=== PATIENT | female | born 1945 | race Caucasian/White ===

== ENCOUNTER 2017-01-08 11:16 | Observation (INO) | payer OTHER ==
[~2017-01-08] VITALS: Ht 149.9 cm; Wt 63.0 kg
[~2017-01-08 11:16] MED LIST: CARVEDILOL3.125 MG PO; EPIPEN ADU0.3 MG/0.3 IM; HYDROCHLOROTHIA25 MG PO; HYDROXYZINE HCL25 MG PO; LIPITOR40 MG PO; LISINOPRIL20 MG PO; LO-DOSE ASPIRIN81 M2 PO; PRESERVISION T1 EACH PO; RESTORIL15 MG PO
[2017-01-08 12:37] LABS: ANION GAP 12 MEQ/L (2-14); CHLORIDE 92 MEQ/L (99-109); GFR ESTIMATE (CALCULATED) > 59 mL/min/; GLUCOSE 88 mg/dL (70-99); POTASSIUM 4.1 MEQ/L (3.7-5.4); SAMPLE HEMOLYSIS CHECK 0; SAMPLE ICTERIC CHECK 0; SAMPLE LIPEMIA CHECK 0; SODIUM 125 MEQ/L (136-147); UREA NITROGEN (BUN) 12 mg/dL (9-23)
[2017-01-08 15:35] LABS: BASOPHIL COUNT 0.1 K/uL (0-0.1); EOSINOPHIL (%) 3.2 % (0-5); EOSINOPHIL COUNT 0.2 K/uL (0-0.3); HEMATOCRIT 37.7 % (36.0-46.0); IMMATURE GRANULOCYTE (%) 0.4 % (0.0-0.7); INSTRUMENT ABS NEUTROPHIL CT 4.5 K/uL; LYMPHOCYTE COUNT 2.1 K/uL (1.0-2.8); MCH 31.1 PG (29.0-34.0); MCHC 33.7 G/DL (30.0-36.0); MCV 92.2 FL (83-99); MEAN PLAT.VOLUME 9.3 uM^3 (9.5-12.4); MONOCYTE (%) 8.2 % (3-12); MONOCYTE COUNT 0.6 K/uL (0-0.8); NEUTROPHIL (%) 58.9 % (45-76); NEUTROPHIL COUNT 4.5 K/uL (1.8-6.4); PLATELET COUNT 301 K/uL (156-360); RBC DIS.WIDTH-CV 11.4 % (11.8-14.6); RBC DIS.WIDTH-SD 38.5 % (39-53); RED BLOOD COUNT 4.09 M/uL (3.80-5.20); WHITE BLOOD COUNT 7.6 K/uL (4.1-10.2)
[2017-01-08 15:44] LABS: CHLORIDE 96 mEq/L (99-109); SODIUM 127 mEq/L (136-147)
[2017-01-08 15:45] LABS: MAGNESIUM 1.5 mg/dL (1.3-2.7)
[2017-01-08 15:46] LABS: GLUCOSE 82 mg/dL (70-99)
[2017-01-08 15:48] LABS: ANION GAP 11 MEQ/L (2-14)
[2017-01-08 15:49] LABS: D-DIMER ELISA 0.52 mg/L FEU (< 0.57); PROTHROMBIN TIME 10.4 (9.2-11.2); PTT 32.9 (25-32)
[2017-01-08 15:50] LABS: GFR ESTIMATE (CALCULATED) > 59 mL/min/
[2017-01-08 15:51] LABS: UREA NITROGEN (BUN) 10 mg/dL (9-23)
[2017-01-08 15:55] LABS: TROP-I INTERPRETATION NEGATIVE; TROPONIN-I < 0.01 ng/mL (0.0-0.30)
[2017-01-08] MEDS ORDERED: CALCIUM 500 MG1 EACH PO (18:00)
[2017-01-08] MEDS ORDERED: VITAMIN D31000 UNI2 PO (18:01)
[2017-01-08] MEDS ORDERED: ASCORBIC ACID250 MG PO (18:01)
[2017-01-08] MEDS ORDERED: GLUCOSAMINE1000 MG PO (18:02)
[2017-01-08 22:23] VITALS: BP 120/59
[2017-01-08 23:45] LABS: ADD MIUA? YES; BILIRUBIN NEGATIVE; BLOOD NEGATIVE; COLOR COLORLESS ((YELLOW)); GLUCOSE (STRIP) NEGATIVE; KETONES NEGATIVE; LEUKOCYTES TRACE; NITRITE NEGATIVE; PROTEIN (STRIP) NEGATIVE; SPECIFIC GRAVITY 1.011 (1.000-1.030); UROBILINOGEN 0.2 MG/DL (0.2-1.0)
[2017-01-08 23:45] LABS: TROP-I INTERPRETATION NEGATIVE; TROPONIN-I 0.01 ng/mL (0.0-0.30)
[2017-01-09 00:13] LABS: BACTERIA RARE /HPF; EPITHELIAL CELLS RARE /HPF; MUCUS TRACE /LPF; RED BLOOD CELLS 0-5 /HPF (0-5); UCUL ADDED? NO; WHITE BLOOD CELLS 0-5 /HPF (0-5)
[2017-01-09 03:53] VITALS: BP 106/53
[2017-01-09 05:33] LABS: HEMATOCRIT 31.3 % (36.0-46.0); MCH 31.4 PG (29.0-34.0); MCHC 33.5 G/DL (30.0-36.0); MCV 93.7 FL (83-99); PLATELET COUNT 282 K/uL (156-360); RBC DIS.WIDTH-CV 11.8 % (11.8-14.6); RBC DIS.WIDTH-SD 40.1 % (39-53); RED BLOOD COUNT 3.34 M/uL (3.80-5.20)
[2017-01-09 05:33] LABS: TROP-I INTERPRETATION NEGATIVE; TROPONIN-I < 0.01 ng/mL (0.0-0.30)
[2017-01-09 05:34] LABS: WHITE BLOOD COUNT 5.1 K/uL (4.1-10.2)
[2017-01-09 05:55] LABS: GLUCOSE 86 mg/dL (70-99)
[2017-01-09 05:56] LABS: ALKALINE PHOSPHATASE 35 IU/L (3-129); ANION GAP 9 MEQ/L (2-14); CHLORIDE 101 MEQ/L (99-109); GFR ESTIMATE (CALCULATED) > 59 mL/min/; HDL CHOLESTEROL 70 MG/DL (Desirable>=50); LDL CHOLESTEROL 84 mg/dL (Desirable<100); NON-HDL CHOLESTEROL 93 mg/dL (Desirable<160); SAMPLE HEMOLYSIS CHECK 0; SAMPLE ICTERIC CHECK 0; SAMPLE LIPEMIA CHECK 0; TOTAL BILIRUBIN 0.5 MG/DL (0.0-1.0); TOTAL CHOLESTEROL 163 mg/dL (Desirable<200); TRIGLYCERIDES 43 MG/DL (Normal: <150); UREA NITROGEN (BUN) 10 mg/dL (9-23)
[2017-01-09 05:57] LABS: SODIUM 135 MEQ/L (136-147)
[2017-01-09 06:56] LABS: Estimated Average Glucose 111 mg/dL (70-123); HEMOGLOBIN A1c (GLYCOHEMOGLOB) 5.5 % HGB (Below 5.7)
[2017-01-09 08:00] VITALS: BP 136/66
[2017-01-09 11:31] VITALS: BP 116/61
[2017-01-09] MEDS ORDERED: CLONAZEPAM0.5 MG PO (11:44)
== END 2017-01-09 13:07 | disposition home or self-care (01) ==
LOC: EME 11:16 → AMB 11:16 → EME 11:16 → AMB 11:30 → EDSTATUS 11:30 → 5WEST 21:10 → EDOF 21:10 → 5WEST 22:09
PROVIDERS: Emergency Medicine; Internal Medicine
DX: R07.89 Other chest pain (principal); Z83.3 Family history of diabetes mellitus; Z86.010 Personal history of colon polyps; Z53.09 Procedure and treatment not carried out because of other contraindication; F41.9 Anxiety disorder, unspecified; I25.10 Atherosclerotic heart disease of native coronary artery without angina pectoris; E78.5 Hyperlipidemia, unspecified; I16.0 Hypertensive urgency; E87.1 Hypo-osmolality and hyponatremia; Z79.82 Long term (current) use of aspirin; Z79.899 Other long term (current) drug therapy; Z82.49 Family history of ischemic heart disease and other diseases of the circulatory system; Z80.1 Family history of malignant neoplasm of trachea, bronchus and lung; K62.5 Hemorrhage of anus and rectum
CPT/HCPCS: 71010; 71275; 80048; 80048 91; 80053; 80061; 81003; 83036; 83735; 84484; 85025; 85027; 85379; 85610; 85730; 93005; 99281; 99284; G0378; J1100; J1644; J2250; J3010; J7030

== ENCOUNTER → 2017-03-09 | Outpatient (CLI) | payer OTHER ==
[~2017-03-09] VITALS: Ht 149.9 cm; Wt 59.4 kg
[~2017-03-09] MED LIST changes: +ASCORBIC ACID250 MG PO; +CALCIUM 500 MG1 EACH PO; +CLONAZEPAM0.5 MG PO; +GLUCOSAMINE1000 MG PO; +NORVASC10 MG PO; +VITAMIN D31000 UNI2 PO; +XANAX1 MG PO
== END | disposition home or self-care (01) ==
LOC: AMB 10:00
DX: D12.4 Benign neoplasm of descending colon (principal); D12.8 Benign neoplasm of rectum; K64.8 Other hemorrhoids; Z86.010 Personal history of colon polyps; I10 Essential (primary) hypertension; E78.5 Hyperlipidemia, unspecified; F51.04 Psychophysiologic insomnia; F41.9 Anxiety disorder, unspecified; Z79.82 Long term (current) use of aspirin; H35.30 Unspecified macular degeneration; Z91.030 Bee allergy status
CPT/HCPCS: 88305; J2250